=== PATIENT | male | born 2000 | race Caucasian/White ===

== ENCOUNTER 2020-04-19 13:43 | Emergency (ER) | payer MEDICAID, SELFPAY ==
[2020-04-19 14:27] VITALS: BP 129/76; PULSE 75; RESP 18; TEMP 37.1; O2SAT 97; BMI 24.9
--- NOTE | 2020-04-19 15:09 | ED.MALEGU ---
HPI - Male Genitourinary General Chief complaint: Urogenital-Male Stated complaint: GROIN PAIN Time Seen by Provider: 04/19/20 15:08 Source: patient Mode of arrival: ambulatory Limitations: no limitations History of Present Illness MD Complaint: penile discharge and dysuria Onset (ago): day(s) (3) Duration: intermittent Location: penis Radiation: penis Severity: mild Quality: burning Relieving factors: none Exacerbating factors: sexual intercourse Context: other (unprotected sex) Associated symptoms: Reports discharge Related Data Previous Rx's Medication Instructions Recorded doxycycline hyclate 100 mg PO BID 7 Days #14 cap 04/19/20 Allergies Allergy/AdvReac Type Severity Reaction Status Date / Time No Known Allergies Allergy Verified 04/19/20 14:31 Review of Systems Review of Systems: Constitutional : No Fever, No Chills ENT/Mouth : No sore throat Eyes: No Eye Pain Cardiovascular : No Chest Pain, No SOB Respiratory : No Cough, No Sputum Gastrointestinal : No Nausea, No Vomiting, No Diarrhea, No abdominal Pain Genitourinary : pos Dysuria, pos discharge Neuro : No Weakness, No Numbness, No Dizziness, No Headache Psych : No Anxiety/Panic, No Depression [facility] Past Medical History Attestation statement: The following information was validated with the patient. Medical History Asthma Social History Social History (Updated 04/19/20 @ 15:12 by Cindy Evangelista DO) Use of substances other than those prescribed or required for medical reasons: No Advance Directives: No Advance Directives Information Provided: Yes Physical Exam Vital Signs: Vital Signs: Last Vital Signs Temp 98.7 F 04/19/20 14:27 Pulse 75 04/19/20 14:27 Resp 18 04/19/20 14:27 BP 129/76 04/19/20 14:27 Pulse Ox 97 04/19/20 14:27 Body Mass Index 24.9 Appearance: Alert. Oriented X3. No acute distress. Eyes: Pupils equal, round and reactive to light. ENT: Pharynx normal. Neck: Normal inspection. CVS: Normal heart rate and rhythm. Respiratory: No respiratory distress. Abdomen: Soft and nontender. Gu: declines patient in hallway Skin: Skin warm and dry. Normal skin color. Normal skin turgor. Extremities: No lower extremity edema. No calf ttp Neuro: Oriented X 3. No motor deficit. No sensory deficit. MDM - Male Genitourinary MDM Narrative Medical decision making narrative: 20 yo male with dysuria and green discharge after sex - no other complaints, G+C sent off, Ceftriaxone and Doxy ordered Discharge Plan Discharge Clinical Impression: Exposure to STD Patient Disposition: Home, Self-Care Instructions: Sexually Transmitted Diseases (ED), Safe Sex Practices (ED) Additional Instructions: return to ED for any worsening symptoms or concerns COMPLETE ALL ANTIBIOTICS, NO SEX FOR 1 WEEK, YOUR PARTNER NEEDS TO BE TREATED WELL Prescriptions: New doxycycline hyclate 100 mg capsule 100 mg PO BID 7 Days Qty: 14 RF: 0
[2020-04-19] MEDS: cefTRIAXone sodium 500 MG, Lidocaine HCl 1 % MPF 1 ML IM (15:25)
[2020-04-20 09:57] LABS: C. trachomatis RNA TMA NOT DETECTED (NOT DETECTED); N. gonorrhoeae RNA TMA DETECTED (NOT DETECTED)
== END 2020-04-19 15:27 | disposition home or self-care (01) ==
PROVIDERS: Emergency Provider Emergency Medicine; PCP Pediatrics Adolescent Medicine
DX: R30.0 Dysuria (principal); Z11.3 Encounter for screening for infections with a predominantly sexual mode of transmission
CPT/HCPCS: 36415; 87491; 87591; 96372; 99283; 99284; J0696

== ENCOUNTER 2020-05-14 17:52 | Emergency (ER) | payer MEDICAID, SELFPAY ==
[2020-05-14 18:05] VITALS: BP 127/73; PULSE 75; RESP 18; TEMP 36.6; O2SAT 98; BMI 24.9
--- NOTE | 2020-05-14 19:13 | ED.MALEGU ---
HPI - Male Genitourinary General Chief complaint: Urogenital-Male Stated complaint: discharge Time Seen by Provider: 05/14/20 18:58 Source: patient Mode of arrival: ambulatory Limitations: no limitations History of Present Illness HPI Narrative: Patient comes to the emergency room complaining of penile discharge and burning with urination. Patient states he started having symptoms today. Patient was seen here on April 19, was treated empirically for a sexually transmitted disease, patient states he took his antibiotics as prescribed. Patient states his partner got treated, they have been using protection until yesterday, patient started having symptoms all over again today. No fever no chills or flank pain. Patient denies testicular pain, no abdominal pain, nausea or vomiting Related Data Previous Rx's Medication Instructions Recorded doxycycline hyclate 100 mg PO BID 7 Days #14 cap 04/19/20 doxycycline hyclate 100 mg PO BID #13 tab 05/14/20 Allergies Allergy/AdvReac Type Severity Reaction Status Date / Time No Known Allergies Allergy Verified 05/14/20 18:04 Review of Systems Review of Systems: Constitutional : No Weight loss, No Fever, No Chills, No Night Sweats, No Fatigue, No Malaise ENT/Mouth : No Hearing loss, No Ear Pain, No Nasal Congestion, No Sinus Pain, No Hoarseness, No sore throat, No Rhinorrhea, No Swallowing Difficulty Eyes: No Eye Pain, No Swelling, No Redness, No Foreign Body, No Discharge, No Vision Changes Cardiovascular : No Chest Pain, No SOB, No Dyspnea on Exertion, No Orthopnea, No Edema, No Palpitations Respiratory : No Cough, No Sputum, No Wheezing, No Smoke Exposure, No Dyspnea Gastrointestinal : No Nausea, No Vomiting, No Diarrhea, No Constipation, No abdominal Pain, No Hematochezia, No Melena Genitourinary : Mild dysuria No Urinary Frequency, No Hematuria, No Urinary Incontinence, No Urgency, No Flank Pain, No Urinary Flow Changes, No Hesitancy, complaining of whitish penile discharge Musculoskeletal : No joint pain, No Myalgias, No Joint Swelling Skin : No Skin Lesions, No rash Neuro : No Weakness, No Numbness, No Paresthesias, No Loss of Consciousness, No Dizziness, No Headache Psych : No Anxiety/Panic, No Depression, No SI/HI/AH/VH, No Social Issues, Heme/Lymph: No Bruising, No Bleeding,No Lymphadenopathy Endocrine : No Polyuria, No Polydipsia, No Temperature Intolerance PMF Past Medical History Medical History (Updated 05/14/20 @ 19:25 by Aislinn Guillen MD) Asthma Sexually transmitted disease Social History Social History (Updated 04/19/20 @ 15:12 by Cindy Evangelista DO) Advance Directives: No Advance Directives Information Provided: Yes Physical Exam Vital Signs: Vital Signs: Last Vital Signs Temp 98 F 05/14/20 18:05 Pulse 75 05/14/20 18:05 Resp 18 05/14/20 18:05 BP 127/73 05/14/20 18:05 Pulse Ox 98 05/14/20 18:05 Body Mass Index 24.9 Appearance: Alert. Oriented X3. No acute distress. Eyes: Pupils equal, round and reactive to light. ENT: Pharynx normal. Neck: Normal inspection. Neck supple. No lymph nodes noted. No crepitus CVS: Normal heart rate and rhythm. Pulses normal. Normal S1 and S2 Respiratory: No respiratory distress. Breath sounds normal. No Wheezing. No rales Abdomen: Soft and nontender. No rigidity. No distention. good BS x4 : Circumcised, clear thin discharge present in the urethra Skin: Skin warm and dry. Normal skin color. Normal skin turgor. Extremities: No lower extremity edema. No lower extremity edema. No Lacerations. No Rash Neuro: Oriented X 3. No motor deficit. No sensory deficit. Moving all extermities. No slurred speech. Course Course Course Narrative: Patient was treated empirically with 500 mg of ceftriaxone and given the 1st dose of doxycycline oral. Patient will continue the course of antibiotics at home. Patient states he is compliant with the antibiotic treatment. Discussed with the patient that his partner needs to be treated as well Discharge Plan Discharge Clinical Impression: Exposure to STD Patient Disposition: Home, Self-Care Instructions: Sexually Transmitted Diseases (ED), Safe Sex Practices (ED) Prescriptions: New doxycycline hyclate 100 mg tablet 100 mg PO BID Qty: 13 RF: 0 No Action doxycycline hyclate 100 mg capsule 100 mg PO BID 7 Days Qty: 14 RF: 0
[2020-05-14 19:27] LABS: Appearance Urine CLOUDY; Color Urine STRAW; Glucose Urine UA NEG (NEG); Leukocyte Esterase Urine 1+ (NEG); Nitrite Urine NEG (NEG); PH 7.5 (5.0-8.0); UACC Culture Trigger YES; Urine Blood NEG (NEG); Urine Ketones NEG (NEG); Urine Protein TRACE MG/DL (NEG-TRACE)
[2020-05-14 19:38] LABS: RBC Urine 0 /HPF (0)
[2020-05-14 19:39] LABS: Amorphous Sediment Urine 3+ /LPF; Bacteria Urine 1+ /LPF
[2020-05-14 19:41] LABS: Squamous Epithelial Cell Urine TRACE /LPF
[2020-05-14] MEDS: cefTRIAXone sodium 500 MG, Lidocaine HCl 1 % MPF 1 ML IM (19:45)
[2020-05-16 20:16] LABS: C. trachomatis RNA TMA NOT DETECTED (NOT DETECTED); N. gonorrhoeae RNA TMA DETECTED (NOT DETECTED)
== END 2020-05-14 20:30 | disposition home or self-care (01) ==
PROVIDERS: Emergency Provider Emergency Medicine; PCP Pediatrics Adolescent Medicine
DX: R36.9 Urethral discharge, unspecified (principal); Z11.3 Encounter for screening for infections with a predominantly sexual mode of transmission
CPT/HCPCS: 36415; 81001; 81003; 87086; 87491; 87591; 96365; 96372; 99284; J0696